=== PATIENT | female | born 1995 | race Caucasian/White ===

== ENCOUNTER → 2019-07-17 09:03 | Outpatient (CLI) | payer OTHER, MEDICAID, SELFPAY ==
[2019-07-17 11:49] LABS: HCG Quantitative /Beta subunit 63266 mIU/mL
== END ==
PROVIDERS: Referring Provider Specialist; Visit Provider Specialist
DX: O26.899 Other specified pregnancy related conditions, unspecified trimester (principal); R10.9 Unspecified abdominal pain; Z3A.01 Less than 8 weeks gestation of pregnancy
CPT/HCPCS: 36415; 84702

== ENCOUNTER → 2019-08-05 13:13 | Outpatient (ROUT) | payer OTHER, MEDICAID, SELFPAY ==
[2019-08-05 14:44] LABS: Urine N gonorrhoeae NOT DETECTED
[2019-08-05 14:59] LABS: Urine Chlamydia NOT DETECTED
== END ==
PROVIDERS: Visit Provider Specialist
DX: Z34.01 Encounter for supervision of normal first pregnancy, first trimester (principal)
CPT/HCPCS: 87491; 87591

== ENCOUNTER → 2019-08-14 11:00 | Outpatient (CLI) | payer OTHER, MEDICAID, SELFPAY ==
[2019-08-14 12:10] LABS: Add Manual Diff / Slide Review NO; Basophils Absolute Auto 0 /uL (0-100); Basophils Percent Auto 0.2 % (0-2); Eosinophils Absolute Auto 0 /uL (0-450); Eosinophils Percent Auto 0.2 % (2-4); Hematocrit 36.9 % (36-46); Hemoglobin 12.8 g/dL (12.0-16.0); Lymphocytes Absolute Auto 1300 /uL (1100-4500); Lymphocytes Percent Auto 18.8 % (25-40); Mean Corpuscular HGB Conc 34.5 % (30-36); Mean Corpuscular Hemoglobin 34.1 PG (26-34); Mean Corpuscular Volume 98.7 fL (80-100); Monocytes Absolute Auto 400 /uL (0-900); Monocytes Percent Auto 5.4 % (3-14); Neutrophils Absolute Auto 5200 /uL (1500-7000); Neutrophils Percent Auto 75.4 % (50-75); Platelet Count 200 X10^3/uL (150-400); Red Blood Cell Count 3.74 X10^6/uL (4.0-5.2); Red Cell Distribution Width 12.9 % (11.6-14.8); White Blood Cell Count 6.9 X10^3/uL (4.5-11.0)
[2019-08-14 12:31] LABS: Appearance Urine UA CLEAR; Bilirubin Urine UA NEGATIVE (NEGATIVE); Color Urine UA YELLOW; Glucose Urine UA NEGATIVE (Negative); Ketones Urine UA TRACE (NEGATIVE); Leukocyte Esterase Urine UA NEGATIVE (NEGATIVE); Nitrite Urine UA NEGATIVE (Negative); Occult Blood Urine UA TRACE-LYSED (Negative); Protein Urine UA NEGATIVE (Negative); Urobilinogen Urine UA 0.2 E.U./dL (0.2)
[2019-08-14 12:52] LABS: Hepatitis B Surface Antigen NEGATIVE s/c (NEGATIVE); Rubella Antibody IgG 48.5 IU/mL (>15)
[2019-08-14 13:13] LABS: HIV 1 & 2 Ab/Ag 4th Gen Combo NEGATIVE (NEGATIVE); Hep C Virus Ab w/Reflex Quant NEGATIVE s/c (NEGATIVE)
[2019-08-15 05:24] LABS: RPR Screen Non Reactive (Non Reactive)
[2019-08-15 07:32] LABS: Varicella IgG Antibody 702 index (Immune >165)
== END ==
PROVIDERS: Referring Provider Specialist; Visit Provider Specialist
DX: Z34.01 Encounter for supervision of normal first pregnancy, first trimester (principal)
CPT/HCPCS: 36415; 80055; 81003; 86787; 86803; 86850; 86900; 86901; 87086; 87389

== ENCOUNTER → 2019-10-02 11:04 | Outpatient (CLI) | payer OTHER, MEDICAID, SELFPAY | PROVIDERS: Referring Provider Specialist; Visit Provider Specialist | DX: Z34.82 Encounter for supervision of other normal pregnancy, second trimester (principal); Z3A.20 20 weeks gestation of pregnancy | CPT/HCPCS: 36415; 82105 ==

== ENCOUNTER → 2019-10-23 10:15 | Outpatient (CLI) | payer OTHER, MEDICAID, SELFPAY ==
--- NOTE | 2019-10-23 10:17 | DI.US.S_ITS ---
PROCEDURE: US OB >= 14 WEEKS FETUS INDICATIONS: ANATOMY SCAN OUTSIDE/PRIOR DATING DATA: Last menstrual period (LMP): Not available. LMP-based estimated date of delivery (BISI): See below. First dating scan (date and location): 08/05/19. Estimated date of delivery (BISI) from first dating scan: 03/11/20. TECHNIQUE: Real-time scanning was performed of the fetus, with image documentation and biometric measurements. Endovaginal scanning: Not needed COMPARISON: [facility], , OB >= 14 WEEKS FETUS, 10/02/2019, 10:56. [facility], , OB >= 14 WEEKS FETUS, 09/04/2019, 9:56. FINDINGS: General: A single living intrauterine gestation is present. Presentation: Breech. Placenta: Placental position is posterior, without previa. Amniotic fluid index: 9.7 cm, normal range is 5-24 cm. heart rate: 152 beats per minute. Maternal cervical canal: 4.4 cm long. Normal lower limit is 2.5 cm. biometrics: Biparietal diameter: 4.9 cm, 20 weeks 5 days Head circumference: 17.9 cm, 20 weeks 2 days Abdominal circumference: 15.2 cm, 20 weeks 3 days Femur length: 3.3 cm, 20 weeks 1 day Estimated gestational age from initial scan: 20 weeks 0 days Composite gestational age from present scan: 20 weeks 3 days Estimated weight and percentile: 348 g, 66 percentile Measurement variability for biometric dating: +/- 7 days from 14 weeks to 15 weeks 6 days gestation, +/- 10 days from 16 weeks to 21 weeks 6 days gestation, +/- 2 weeks from 22 weeks to 27 weeks 6 days gestation, +/- 3 weeks for 28 weeks gestation or later. weight reference: 4500 g or EFW >90/95% is considered macrosomia or large for gestational age. EFW <10% is small for gestational age. EFW 5% or less is considered intra-uterine growth restriction. Anatomic survey: Neuro: Ventricles are non-dilated at less than 10 mm. Cisterna magna is normal at 3-11 mm. Cerebellum is normal in size and morphology. Nuchal skin fold: Normal at less than 6 mm between 14-21 weeks gestational age. Face: Nose and lips, facial profile are normal. Spine: No evidence for spina bifida. Heart: 4-chambered heart is present, with normal ventricular outflow tracts. Diaphragm: Diaphragm is intact. Stomach: Left-sided stomach is present. Kidneys: No hydronephrosis. Normal is less than 5 mm in 2nd trimester, less than 7 mm in 3rd trimester. Cord: 3-vessel cord has orthotopic insertion. Bladder: Normal in size. Extremities: All 4 extremities identified. IMPRESSION: Breech presentation, no anomalies seen. Appropriate interval growth. Dictated by: Augustus Orozco M.D. on 10/23/2019 at 11:30 Approved by: Augustus Orozco M.D. on 10/23/2019 at 11:33
== END ==
PROVIDERS: Referring Provider Specialist; Visit Provider Specialist
DX: Z34.82 Encounter for supervision of other normal pregnancy, second trimester (principal); Z3A.20 20 weeks gestation of pregnancy
CPT/HCPCS: 76811

== ENCOUNTER → 2019-11-30 08:49 | Outpatient (CLI) | payer OTHER, MEDICAID, SELFPAY ==
[2019-11-30 11:27] LABS: Hematocrit 31.7 % (36-46); Hemoglobin 10.8 g/dL (12.0-16.0)
[2019-11-30 12:22] LABS: GTT (PREG) 1 Hour PP 50gm Dose 116 mg/dL (76-139)
== END ==
PROVIDERS: Referring Provider Specialist; Visit Provider Specialist
DX: Z34.02 Encounter for supervision of normal first pregnancy, second trimester (principal)
CPT/HCPCS: 36415; 82950; 85014; 85018

== ENCOUNTER → 2020-02-18 10:35 | Outpatient (CLI) | payer OTHER, MEDICAID, SELFPAY ==
[2020-02-19 11:06] LABS: Strep Grp B PCR NEG for Grp B Strep
== END ==
PROVIDERS: PCP Specialist; Visit Provider Specialist
DX: Z34.03 Encounter for supervision of normal first pregnancy, third trimester (principal); Z3A.36 36 weeks gestation of pregnancy
CPT/HCPCS: 87653

== ENCOUNTER 2020-03-11 04:16 | Inpatient (IN) | payer OTHER, SELFPAY ==
[2020-03-11 05:07] LABS: Add Manual Diff / Slide Review NO; Basophils Absolute Auto 100 /uL (0-100); Basophils Percent Auto 0.5 % (0-2); Eosinophils Absolute Auto 0 /uL (0-450); Eosinophils Percent Auto 0.3 % (2-4); Hematocrit 38.9 % (36-46); Hemoglobin 13.1 g/dL (12.0-16.0); Lymphocytes Absolute Auto 1900 /uL (1100-4500); Lymphocytes Percent Auto 18.4 % (25-40); Mean Corpuscular HGB Conc 33.7 % (30-36); Mean Corpuscular Hemoglobin 33.7 PG (26-34); Monocytes Absolute Auto 600 /uL (0-900); Monocytes Percent Auto 5.4 % (3-14); Neutrophils Absolute Auto 7700 /uL (1500-7000); Neutrophils Percent Auto 75.4 % (50-75); Platelet Count 203 X10^3/uL (150-400); Red Blood Cell Count 3.88 X10^6/uL (4.0-5.2); Red Cell Distribution Width 14.1 % (11.6-14.8); White Blood Cell Count 10.2 X10^3/uL (4.5-11.0)
[2020-03-11 06:30] VITALS: BP 100/51
--- NOTE | 2020-03-11 07:42 | PM.OBHP.1 ---
OB HPI Date/Time Date of admission: 03/11/20 Date Patient Seen: 03/11/20 Time Patient Seen: 07:42 History of Present Condition Chief complaint: Evaluation of Labor : 1 Para: 0 Estimated Date of Delivery: 03/11/20 Estimated Gestational Age (weeks): 40 Narrative: Rhonda Rivera is a 24 year old female admitted in active labor History of Present care: good care, initiated at week # (8), number of visits (15) and pounds weight gain (42) Dating criteria: LMP confirmed by 1st trimester US Ultrasounds: normal 1st trimester US and normal mid trimester US Obstetrical complications: none Medical complications: none Preadmission Labs Blood type: A (+) positive -: Antibody screen: negative, GBS status: negative, HBsAG: negative, HIV: negative and RPR/VDLR: negative -: Chlamydia screen: not detected and Gonorrhea screen: not detected -: Rubella: immune and Varicella: immune HCAB: negative Cell-free DNA: Normal male 1 hr GTT: 116 Evaluation Evaluation Baseline heart rate: 140 Variability: Average (6-10) monitor accelerations: Present monitor decelerations: Variable Contraction Frequency (minutes): 3 Uterine Contraction Intensity: Strong/Firm Category of Tracing: Reactive Cervical dilation (cm): 4 Cervical effacement (%): 70 station: -2 Laboratory results: Laboratory Tests 03/11/20 03/11/20 04:50 04:50 WBC 10.2 RBC 3.88 L Hgb 13.1 Hct 38.9 MCV 100.0 MCH 33.7 MCHC 33.7 RDW 14.1 Plt Count 203 Neut % (Auto) 75.4 H Lymph % (Auto) 18.4 L [place] % (Auto) 5.4 Eos % (Auto) 0.3 L Baso % (Auto) 0.5 Neut # (Auto) 7700 H Lymph # (Auto) 1900 [place] # (Auto) 600 Eos # (Auto) 0 Baso # (Auto) 100 Blood Type A Positive Antibody Screen Negative Non-invasive Membranes Rupture Test: positive PFSH Medical History (Updated 08/04/19 @ 22:06 by Ana Flores) Anxiety and depression (Acute) Collar bone fracture (Acute) Human papilloma virus (Chronic ~2019) Psoriasis (Acute) Surgical History (Updated 01/01/20 @ 11:41 by Pretty Pérez) Anesthesia (Resolved) [place] teeth extracted (Acute ~2012) Family History (Updated 08/04/19 @ 22:08 by Ana Flores) Mother Breast cancer Grandmother Adopted Cancer Father Adopted Family/Other Twins, one liveborn and one stillborn Grandfather Cancer Sister Psoriasis Post depression DVT (deep vein thrombosis) in Reyes's syndrome complicating Sister Kidney stones Social History marital status: (not yet legally ) pets and animals: Yes (X 2 dogs) education level: college (Degree in Communications) occupational status: unemployed current occupational exposures/hazards: No special mathew needs: No Smoking Status: Never smoker second hand exposure: No alcohol intake: never substance use type: does not use Meds Home Medications and Allergies Home Medications Medication Instructions Recorded Confirmed Type aspirin 81 mg tablet,delayed 81 mg PO DAILY 07/29/19 03/11/20 History release prenat.vits,ronal,qnv-[id number] 1 tab PO DAILY 07/29/19 03/11/20 History ferrous sulfate 142 mg (45 mg 142 mg PO DAILY 01/15/20 03/11/20 History iron) tablet,extended release Double Electric breast Pump and #1 each 02/23/20 03/11/20 Rx Supplies Allergies Allergy/AdvReac Type Severity Reaction Status Date / Time No Known Drug Allergies Allergy Verified 03/10/20 10:06 Review of Systems Review of Systems Narrative: Patient with spontaneous rupture membranes clear fluid. Good movement. No headaches, scotomata, epigastric pain. ROS: Yes All systems reviewed with the patient and are negative except as otherwise documented Exam Vital Signs (past 8 hours): Blood pressure 117/80, pulse of 94, temperature 96.6?- 03/11/20 06:30 Blood Pressure 100/51 L Narrative Exam Narrative: HEENT exam within normal limits. Lungs are clear to auscultation and percussion. Heart is regular rate and rhythm no S3-S4 or murmurs. Abdomen is gravid. Fetus is vertex. Extremities without edema and nontender. Objective Labs Result Diagrams: 03/11/20 04:50 Labs: Laboratory Results - last 24 hr 03/11/20 03/11/20 04:50 04:50 WBC 10.2 RBC 3.88 L Hgb 13.1 Hct 38.9 MCV 100.0 MCH 33.7 MCHC 33.7 RDW 14.1 Plt Count 203 Neut % (Auto) 75.4 H Lymph % (Auto) 18.4 L [place] % (Auto) 5.4 Eos % (Auto) 0.3 L Baso % (Auto) 0.5 Neut # (Auto) 7700 H Lymph # (Auto) 1900 [place] # (Auto) 600 Eos # (Auto) 0 Baso # (Auto) 100 Blood Type A Positive Antibody Screen Negative Assessment and Plan Assessment and Plan Assessment and Plan narrative: 40 week gestation with spontaneous rupture membranes in active labor. Anticipate vaginal delivery.
[2020-03-11 08:03] LABS: COVID19 -Nasal RAPID Negative (Negative)
[2020-03-11] MEDS: LACTATED RINGERS 1,000 ML 100 ML IV ×2 (10:54→15:56)
[2020-03-11] MEDS: FENT 2MCG/ML BUPIV 0.125% EPI 200 MCG/100 ML PLAST..BAG 10 MCG EPIDURAL ×2 (10:55→11:26)
--- NOTE | 2020-03-11 18:19 | PM.OBPRVD ---
Labor & Delivery Delivery date: 03/11/20 Intrapartal events: Prolonged 2nd Stage > 2.5 hours (3-1/2 hours) Cervical ripening method: none Induction method: none Delivery monitor: external FHT and external uterine Route of delivery: vacuum extraction Indication for instrumentation: nonreassuring FHR tracing L&D Laceration Description: Perineal - 4th Degree Delivery repair: vicryl and chromic Estimated blood loss (mL): 400 Anesthesia type: Epidural Narrative: Patient arrived on Labor and delivery in spontaneous labor after rupture of membranes. She received an epidural catheter for pain control. heart tones category 1 to category 2 throughout labor. Patient began having an increased temperature and heart rate baseline increasing after 3-1/2 hours of pushing so decision was made to assist with vacuum extraction. The vacuum was placed for 1 contraction with the head . The infant delivered over an intact perineum. There was a nuchal cord that was released. The viable male infant was placed on maternal abdomen. After the cord stopped pulsating the cord was clamped, cut, and cord bloods obtained. The placenta delivered spontaneously, intact, with 3 vessels. Patient was found to have 4th degree perineal tear. The rectal mucosa so was reapproximated with 3 0 chromic interrupted suture. The tissue was imbricated over with 2 0 Vicryl interrupted suture. The rectal sphincter was repaired with four 0 Vicryl figure of 8 sutures at 12:36 p.m. and 9:00 a.m. making sure to include the fascia. The deep layer was reapproximated with interrupted 2 0 chromic sutures. The rest of the tear was repaired with 3 0 chromic suture in the usual 2 layer fashion. Patient did require 20 cc of additional lidocaine for pain control during repair. There were no cervical or vaginal tears. Baby 1: Infant gender: Male Presentation: vertex position: Right Occiput Anterior Placenta delivery description: Spontaneous cord vessel description: Nuchal Cord score (1 min): 8 score (5 min): 9 Plan for aftercare: Routine care with particular attention to 4th degree tear
[2020-03-11] MEDS: DOCUSATE 100 MG CAPSULE PO (20:20)
[2020-03-11] MEDS: ACETAMINOPHEN 325 MG TABLET 650 MG PO (20:20)
[2020-03-11] MEDS: IBUPROFEN 600 MG TABLET PO (20:20)
[2020-03-12] MEDS: IBUPROFEN 600 MG TABLET PO ×4 (02:09→22:09)
[2020-03-12] MEDS: ACETAMINOPHEN 325 MG TABLET 650 MG PO ×3 (02:10→20:19)
[2020-03-12 05:47] LABS: Add Manual Diff / Slide Review NO; Basophils Absolute Auto 0 /uL (0-100); Basophils Percent Auto 0.2 % (0-2); Eosinophils Absolute Auto 0 /uL (0-450); Eosinophils Percent Auto 0.1 % (2-4); Hematocrit 28.8 % (36-46); Hemoglobin 9.7 g/dL (12.0-16.0); Lymphocytes Absolute Auto 1700 /uL (1100-4500); Lymphocytes Percent Auto 11.8 % (25-40); Mean Corpuscular HGB Conc 33.7 % (30-36); Monocytes Absolute Auto 700 /uL (0-900); Monocytes Percent Auto 4.6 % (3-14); Neutrophils Absolute Auto 11700 /uL (1500-7000); Neutrophils Percent Auto 83.3 % (50-75); Platelet Count 162 X10^3/uL (150-400); Red Blood Cell Count 2.85 X10^6/uL (4.0-5.2); Red Cell Distribution Width 14.1 % (11.6-14.8)
[2020-03-12] MEDS: LANOLIN OINT 7 GM 1 APPLIC TOP (07:51)
[2020-03-12] MEDS: DOCUSATE 100 MG CAPSULE PO (07:51)
[2020-03-12] MEDS: DERMOPLAST SPRAY 20% 60 ML 1 SPRAY TOP (07:52)
--- NOTE | 2020-03-12 09:01 | P.PNOB_ITS ---
Subjective - OB Subjective Patient comments: pain well controlled, tolerating diet and flatus present baby status: doing well feeding status: exclusively breast feeding Narrative: This patient is a 24yo P1 now PPD#1 s/p VAVD of a 9# infant, complicated by 4th degree perineal laceration. Date Patient Seen: 03/12/20 Time Patient Seen: 09:14 Interval history: The patient reports slowly improving pain control this AM, moderate lochia, passage of flatus, and is voiding though with some incontinence. She is tolerating PO and reports some dizziness when first ambulating this AM but no chest pain, palpitations, RAMIREZ, visual changes, or any other complaints. Exam Vital Signs (past 8 hours): 101/69, HR 78 Const General: cooperative, healthy appearing and comfortable Other: pale but comfortable appearing Resp Effort & Inspection: normal respiratory effort Auscultation: clear to auscultation bilaterally Cardio Rate: regular rate GI Palpation: soft and No tender Other: fundus firm, well below u Other: Laceration repair intact with no erythema, drainage, odor Skin General: no rashes or lesions noted Extrem General: normal to inspection Objective Labs Result Diagrams: 03/12/20 05:10 Labs: Laboratory Results - last 24 hr 03/12/20 05:10 WBC 14.0 H RBC 2.85 L Hgb 9.7 L Hct 28.8 L MCV 101.0 H MCH 34.0 MCHC 33.7 RDW 14.1 Plt Count 162 Neut % (Auto) 83.3 H Lymph % (Auto) 11.8 L [place] % (Auto) 4.6 Eos % (Auto) 0.1 L Baso % (Auto) 0.2 Neut # (Auto) 07529 H Lymph # (Auto) 1700 [place] # (Auto) 700 Eos # (Auto) 0 Baso # (Auto) 0 Assessment & Plan Plan day: 1 plan OB: routine care Comments: This patient is PPD#1 s/p a VAVD yesterday evening with a 4th degree perineal laceration. She is slowly meeting goals, though appropriately this AM. Patient had a significant hgb drop and will be started on iron supplements, is on BID stool softeners. Discussed anticipated recovery cour se and plan of care. Considering DC this PM vs tomorrow AM. Time Spent With Patient Time: Total time spent is greater than 50% in coordination of care (as documented) at patient's floor/unit and/or counseling patient: Time with patient: 15-24 minutes
[2020-03-12] MEDS: FERROUS SULFATE 325 MG TABLET PO (09:52)
[2020-03-13] MEDS: IBUPROFEN 600 MG TABLET PO (03:52)
--- NOTE | 2020-03-13 06:36 | PM.OBDS.1 ---
Discharge Providers Provider Date of admission: 03/11/20 04:16 Discharge Date: 03/13/20 Primary care physician: Patti Hood MD Consults: 03/11/20 04:53 Consult to Anesthesiology Urgent Comment: Consulting Provider: Anesthesiologist Reason for consultation: Epidural Has provider been notified: No 03/12/20 18:17 Consult to Business Development Coordinator Routine Comment: Discharge provider: Jazmin Barnett MD Summary Hospital Course Date Patient Seen: 03/13/20 Time Patient Seen: 06:37 Procedures: vacuum assisted vaginal delivery Hospital Course: This patient presented in labor, and progressed to fully dilated. After a 3 hour pushing stage, she underwent vacuum assisted vaginal delivery due to distress. A 4th degree perineal laceration was repaired in the usual fashion. The patient had some urinary incontinence in the pospartum period and dizziness and pre-syncope on PPD#1, but no ongoing blood loss and no signs of infection. Her recovery was otherwise uncomplicated, and she was discharged on PPD#2 with precautions and plan to follow up in clinic in 1-2 weeks. Peripartum Data Infant Delivery Method: Natural Vaginal Laceration Description: Perineal - 4th Degree Procedures: vacuum assisted vaginal delivery, 4th degree perineal laceration repair. complications: perineal laceration 1: Gender: Male Disposition of : home Status at Discharge Cognitive/behavioral status at discharge: oriented Functional status at discharge: independent ambulation Overall status at discharge: patient is progressing back to baseline Time Spent with Patient Time attestation: Total time spent providing and/or coordinating discharge services: Time spent: Less than 30 minutes Objective Labs Result Diagrams: 03/12/20 05:10 Exam Vital Signs (past 8 hours): 103/57, HR 84 Narrative Exam Narrative: Patient resting in bed with . Moderate lochia, improving urinary continence, passing flatus, tolerating PO, no dizziness, chest pain, palpitations. Ambulating well. Good pain control. Const General: cooperative, healthy appearing and comfortable Other: Resting in bed, overall well appearing and much improved since yesterday AM. Resp Effort & Inspection: normal respiratory effort Auscultation: clear to auscultation bilaterally Cardio Rate: regular rate Rhythm: regular rhythm GI Inspection: distended (soft, tympanic) Palpation: soft and No tender Other: fundus firm, well below u. External Female Exam: external swelling (mild, no erythema or drainage) Skin General: no rashes or lesions noted Extrem General: normal to inspection Discharge Plan Discharge Plan Patient Disposition: Home Discharge orders & Medications Prescriptions: New docusate sodium 100 mg capsule 100 mg PO BID Qty: 60 RF: 1 oxycodone 5 mg tablet 5 mg PO Q8H PRN (Reason: pain) Qty: 10 RF: 0 docusate sodium 100 mg capsule 100 mg PO BID Qty: 60 RF: 1 Continued (DME) Double Electric breast Pump and Supplies See Rx Instructions .ROUTE .MEDSUPPLY Qty: 1 RF: 0 Slow Fe 142 mg (45 mg iron) tablet extended release 142 mg PO DAILY RF: 0 prenat.vits,ronal,[id number] Tablet 1 tab PO DAILY RF: 0 Discontinued aspirin 81 mg tablet,delayed release (DR/EC) 81 mg PO DAILY RF: 0 Follow up/Referrals: Patti Hood MD [Primary Care Provider] - 2 Weeks (Perineal laceration repair check) Diet/Activity/Treatments Diet: Regular Activity: Nothing in the vagina for 6 weeks. Avoid heavy lifting for 6 weeks. If you have increasing pain, bleeding, fevers, chills, drainage, trouble voiding or passing bowel movement, headaches, chest pain, visual changes, or any other complaints, call or come to the emergency room. Skin/Wound/Dressing Care Report to your healthcare provider any signs of infection, such as:: chills, fever, night sweats, increased pain, unusual drainage and unusual redness Visit Report/Discharge Packet Instructions: DI for Vulvo-vaginal Tears, DI for Labor and Delivery, Vaginal Discharge Data Primary Care Provider: Patti Hood
[2020-03-13 07:16] VITALS: BP 100/51
[2020-03-13] MEDS: DOCUSATE 100 MG CAPSULE PO (09:25)
[2020-03-13] MEDS: FERROUS SULFATE 325 MG TABLET PO (09:25)
[2020-03-13] MEDS: ACETAMINOPHEN 325 MG TABLET 650 MG PO (09:26)
[2020-03-13 10:36] VITALS: BP 100/51; PULSE 87; RESP 17; TEMP 37
== END 2020-03-13 11:45 | disposition home or self-care (01) | DRG 560 ==
PROVIDERS: Admitting Provider Specialist; PCP Specialist; Referring Provider Specialist; Visit Provider Specialist
DX: O42.02 Full-term premature rupture of membranes, onset of labor within 24 hours of rupture (principal); Z3A.40 40 weeks gestation of pregnancy; Z37.0 Single live birth; O70.3 Fourth degree perineal laceration during delivery; O63.1 Prolonged second stage (of labor); O76 Abnormality in fetal heart rate and rhythm complicating labor and delivery; Z11.59 Encounter for screening for other viral diseases
CPT/HCPCS: 01967; 36415; 59050; 59409; 85025; 86850; 86900; 86901; 87635; G0379

== ENCOUNTER → 2021-05-04 08:09 | Outpatient (CLI) | payer OTHER, MEDICAID, SELFPAY ==
[2021-05-04 10:34] LABS: Appearance Urine UA CLEAR; Bilirubin Urine UA NEGATIVE (NEGATIVE); Color Urine UA YELLOW; Glucose Urine UA NEGATIVE (Negative); Ketones Urine UA NEGATIVE (NEGATIVE); Leukocyte Esterase Urine UA NEGATIVE (NEGATIVE); Nitrite Urine UA NEGATIVE (Negative); Occult Blood Urine UA NEGATIVE (Negative); Protein Urine UA NEGATIVE (Negative); Urobilinogen Urine UA 0.2 E.U./dL (0.2); pH Urine UA 7.5 (4.5-8.0)
[2021-05-04 10:47] LABS: Bacteria Urine Occasional (0-1); Culture Indicated Urine Specimen Cultured; RBC Urine None Seen (0-5/HPF); Squamous Epithelial Cell Urine 1-5 /HPF (0-5/HPF); WBC Urine 0-1/HPF (0-5/HPF)
== END ==
PROVIDERS: Family Provider Specialist; Referring Provider Specialist; Visit Provider Specialist
DX: R39.9 Unspecified symptoms and signs involving the genitourinary system (principal)
CPT/HCPCS: 81001; 87086